=== PATIENT | female | born 1985 ===

== ENCOUNTER 2022-11-18 05:33 | Inpatient (IN) | payer BC ==
[~2022-11-18 05:33] MED LIST: Lactated Ringers 1,000 ML IV SCH; Sodium Chloride 0.9% 10 ML Syringe FLUSH PRN
[2022-11-18 05:57] LABS: BASOPHILS ABSOLUTE AUTO 0.02 K/mm3 (0.01-0.08); BASOPHILS PERCENT AUTO 0.2 % (0.1-1.2); EOSINOPHILS ABSOLUTE AUTO 0.07 K/mm3 (0.04-0.36); EOSINOPHILS PERCENT AUTO 0.6 (0.7-5.8); HEMATOCRIT 41.6 % (34.1-44.9); HEMOGLOBIN 13.9 gm/dl (11.2-15.7); IMMATURE GRAN ABSOLUTE AUTO 0.08 K/mm3 (0.00-0.10); IMMATURE GRAN PERCENT AUTO 0.7 % (<=1.0); LYMPHOCYTES ABSOLUTE AUTO 2.38 K/mm3 (1.18-3.74); LYMPHOCYTES PERCENT AUTO 20.2 % (19.3-51.7); MEAN CORPUSCULAR HEMOGLOBIN 30.8 pg (25.6-32.2); MEAN CORPUSCULAR HGB CONC 33.4 g/dl (32.2-35.5); MEAN CORPUSCULAR VOLUME 92.2 fl (79.4-94.8); MEAN PLATELET VOLUME 9.4 fl (9.4-12.3); MONOCYTES ABSOLUTE AUTO 0.88 K/mm3 (0.24-0.36); MONOCYTES PERCENT AUTO 7.5 % (4.7-12.5); NEUTROPHILS ABSOLUTE AUTO 8.33 K/mm3 (1.56-6.13); NEUTROPHILS PERCENT AUTO 70.8 % (34.0-71.1); PLATELET COUNT,PLT 205 K/mm3 (182-369); RED BLOOD CELL COUNT 4.51 M/mm3 (3.98-5.22); WHITE BLOOD CELL COUNT,WBC 11.76 K/mm3 (3.98-10.04)
[2022-11-18] MEDS ORDERED: Metoclopramide 10 MG/2 ML SDV IVPUSH ONE (06:30)
[2022-11-18] MEDS ORDERED: Citric Acid/Sodium Citrate Solution 30 ML Cup PO ONE (06:30)
[2022-11-18] MEDS ORDERED: Lactated Ringers 1,000 ML ONE (06:50)
[2022-11-18] MEDS ORDERED: Oxytocin 10 Units/1 ML SDV ONE ×2 (06:50)
[2022-11-18] MEDS ORDERED: Morphine PF 1 MG/ML Amp ONE (06:50)
[2022-11-18] MEDS ORDERED: Ketorolac 30 MG/ML SDV ONE (06:50)
[2022-11-18] MEDS ORDERED: Ondansetron 4 MG/2 ML SDV ONE (06:50)
[2022-11-18] MEDS ORDERED: ceFAZolin 2 GM in Sodium Chloride 0.9% 50 ML IV ONE (07:00)
[2022-11-18] MEDS ORDERED: Oxytocin/Lactated Ringers 10 UNIT/1,000 ML BAG IV SCH (07:30)
[2022-11-18] MEDS ORDERED: ceFAZolin 2 GM Vial ONE (08:00)
[2022-11-18] MEDS ORDERED: Methylergonovine 0.2 MG/1 ML Amp IM PRN (08:00)
[2022-11-18] MEDS ORDERED: Phenylephrine 1% 10 MG/ML SDV ONE (08:04)
[2022-11-18] MEDS ORDERED: ePHEDrine 50 MG/ML SDV ONE (08:04)
[2022-11-18] MEDS ORDERED: fentaNYL 100 MCG/2 ML SDV ONE (08:28)
[2022-11-18] MEDS ORDERED: Ondansetron 4 MG/2 ML SDV IVPUSH PRN (08:53)
[2022-11-18] MEDS ORDERED: diphenhydrAMINE 50 MG/ML SDV IVPUSH PRN ×2 (08:53→09:54)
[2022-11-18] MEDS ORDERED: fentaNYL 100 MCG/2 ML SDV IVPUSH PRN (08:53)
[2022-11-18] MEDS ORDERED: Sodium Chloride 0.9% 10 ML Syringe FLUSH SCH (09:00)
[2022-11-18] MEDS ORDERED: ePHEDrine 50 MG/ML SDV IVPUSH PRN (09:54)
[2022-11-18] MEDS ORDERED: Docusate Sodium 100 MG Cap PO PRN (09:54)
[2022-11-18] MEDS ORDERED: Sodium Chloride 0.9% 10 ML Syringe FLUSH PRN (09:54)
[2022-11-18] MEDS ORDERED: Ondansetron 4 MG/2 ML SDV IV PRN (09:54)
[2022-11-18] MEDS ORDERED: Naloxone 0.4 MG/ML SDV IVPUSH PRN (09:54)
[2022-11-18] MEDS ORDERED: Acetaminophen/oxyCODONE 325-5 MG Tab PO PRN ×2 (09:54)
[2022-11-18] MEDS ORDERED: Dextrose 5%-Lactated Ringers 1,000 ML IV SCH (09:54)
[2022-11-18] MEDS: Ketorolac 30 MG/ML SDV IVPUSH SCH ×2 (14:27→20:16)
[2022-11-18] MEDS ORDERED: Sodium Chloride 0.9% 500 ML IV ONE (16:45)
[2022-11-19] MEDS: Ketorolac 30 MG/ML SDV IVPUSH SCH (02:23)
[2022-11-19 06:45] LABS: HEMATOCRIT 32.2 % (34.1-44.9); HEMOGLOBIN 10.5 gm/dl (11.2-15.7); MEAN CORPUSCULAR HEMOGLOBIN 30.6 pg (25.6-32.2); MEAN CORPUSCULAR HGB CONC 32.6 g/dl (32.2-35.5); MEAN CORPUSCULAR VOLUME 93.9 fl (79.4-94.8); PLATELET COUNT,PLT 174 K/mm3 (182-369); RED BLOOD CELL COUNT 3.43 M/mm3 (3.98-5.22); WHITE BLOOD CELL COUNT,WBC 12.38 K/mm3 (3.98-10.04)
[2022-11-19] MEDS ORDERED: Ibuprofen 600 MG Tab PO PRN (08:30)
== END 2022-11-19 18:20 | disposition home or self-care (01) | DRG 540 ==
LOC: JD.OB 05:33
PROVIDERS: ADMIT Obstetrics & Gynecology; ATTEND Obstetrics & Gynecology
PROC: 10D00Z1 Extraction of Products of Conception, Low, Open Approach (ICD-10-PCS; principal; 2022-11-18)
DX: O34.211 Maternal care for low transverse scar from previous cesarean delivery (principal); Z37.0 Single live birth; Z3A.39 39 weeks gestation of pregnancy
CPT/HCPCS: 01961; 36415; 59025; 85025; 85027; 86592; 86850; 86900; 86901; 94762; A9270-GY; J0690; J1885; J2274; J2370; J2405; J2590; J2765; J3010; J3490; J7030; J7120; J7121